=== PATIENT | female | born 1960 | race Caucasian/White ===

== ENCOUNTER → 2017-07-13 | Outpatient (CLI) | payer OTHER ==
[~2017-07-13] MED LIST: ALBUTEROL0.09 MG/A2 INH; ASPIRIN CHEWABL81 M1 PO; ATORVASTATIN CA80 M1 PO; CLOPIDOGREL75 MG PO; HYDROCODONE BIT1 T11 PO; LEVOFLOXACIN500 MG PO; METOPROLOL SR50 MG PO; METOPROLOL SUCC25 M2 PO; METOPROLOL SUCC50 M1 PO; PREDNICOT20 MG PO
== END | disposition home or self-care (01) ==
LOC: MAMMO 10:17
DX: Z12.31 Encounter for screening mammogram for malignant neoplasm of breast (principal)

== ENCOUNTER → 2017-07-27 | Outpatient (CLI) | payer OTHER | END | disposition home or self-care (01) | LOC: MAMMO 10:43 | DX: Z12.31 Encounter for screening mammogram for malignant neoplasm of breast (principal) ==

== ENCOUNTER → 2020-08-24 | Outpatient (CLI) | payer OTHER | END | disposition home or self-care (01) | LOC: MAMMO 00:11 | PROVIDERS: ATTEND Nurse Practitioner Family | DX: Z12.31 Encounter for screening mammogram for malignant neoplasm of breast (principal); N63.11 Unspecified lump in the right breast, upper outer quadrant ==

== ENCOUNTER → 2021-11-10 | Outpatient (CLI) | payer OTHER | LOC: MAMMO 10:47 | PROVIDERS: ATTEND Internal Medicine | DX: Z12.31 Encounter for screening mammogram for malignant neoplasm of breast (principal); N64.89 Other specified disorders of breast ==

== ENCOUNTER 2022-05-15 20:48 | Emergency (ER) | payer OTHER ==
[~2022-05-15] VITALS: Ht 157.4 cm; Wt 50.8 kg
[2022-05-15] MEDS ORDERED: AMOX-CLAV 875-1 EACH PO (22:13)
== END 2022-05-15 22:44 | disposition home or self-care (01) ==
LOC: ED 20:48
DX: S61.432A Puncture wound without foreign body of left hand, initial encounter (principal); S61.431A Puncture wound without foreign body of right hand, initial encounter; I10 Essential (primary) hypertension; J45.909 Unspecified asthma, uncomplicated; F10.10 Alcohol abuse, uncomplicated; W55.01XA Bitten by cat, initial encounter; Y93.89 Activity, other specified; Y92.89 Other specified places as the place of occurrence of the external cause; Y99.8 Other external cause status

== ENCOUNTER → 2022-11-14 | Outpatient (CLI) | payer OTHER ==
[~2022-11-14] MED LIST changes: +AMOX-CLAV 875-1 EACH PO
== END | disposition home or self-care (01) ==
LOC: MAMMO 10:57
PROVIDERS: ATTEND Nurse Practitioner Family
DX: Z12.31 Encounter for screening mammogram for malignant neoplasm of breast (principal)

== ENCOUNTER → 2023-12-25 | Outpatient (CLI) | payer OTHER | LOC: RAD 12-08 10:30 | PROVIDERS: ATTEND Internal Medicine | DX: Z13.820 Encounter for screening for osteoporosis (principal); N95.9 Unspecified menopausal and perimenopausal disorder; M85.89 Other specified disorders of bone density and structure, multiple sites ==

== ENCOUNTER → 2024-01-17 | Outpatient (CLI) | payer OTHER | END | disposition home or self-care (01) | LOC: MAMMO 12-21 10:30 | PROVIDERS: ATTEND Nurse Practitioner Family | DX: Z12.31 Encounter for screening mammogram for malignant neoplasm of breast (principal) ==

== ENCOUNTER → 2024-12-26 | Outpatient (CLI) | payer OTHER | END | disposition home or self-care (01) | LOC: MAMMO 08:22 | PROVIDERS: ATTEND Internal Medicine | DX: R92.313 Mammographic fatty tissue density, bilateral breasts (principal); D48.62 Neoplasm of uncertain behavior of left breast ==